=== PATIENT | female | born 1995 | race Caucasian/White ===

== ENCOUNTER 2022-04-04 03:56 | Emergency (ER) | payer OTHER ==
[~2022-04-04] VITALS: Ht 170.2 cm; Wt 49.9 kg
--- NOTE | 2022-04-04 04:10 | NUR ---
pt in room 2 b pt states she has leison on upper body and thigh area and wants std testing Dr. Nunez at bedside.
[2022-04-04] MEDS ORDERED: CLOT15CR27 TP (04:40)
[2022-04-04] MEDS ORDERED: FLUC150T PO (04:40)
--- NOTE | 2022-04-04 04:53 | NUR ---
Patient discharged to home in stable condition. Written and verbal after care instructions given. Patient verbalizes understanding of instructions. Stressed follow up or return to ER for worsening s/s. Patient is a/ox4, NAD noted. Patient is able to walk with steady gait.
[2022-04-04 04:54] VITALS: BP 127/69
[2022-04-04 05:42] LABS: *BILIRUBIN,URIN NEGATIVE (NEGATIVE); *CLARITY,URINE CLEAR (CLEAR); *COLOR,URINE YELLOW (YELLOW); *KETONES,URINE NEGATIVE (NEGATIVE); *UROBILINOGEN,URINE 0.2 E.U./dl (NORMAL); LEUKOCYTE ESTERASE ,URINE NEGATIVE (NEGATIVE); NITRITE, URINE NEGATIVE (NEGATIVE); PH,URINE 5.5 (5.0-8.0); UGLUCOSE NEGATIVE (NEGATIVE)
[2022-04-04 05:43] LABS: *BLOOD, URINE TRACE (NEGATIVE)
[2022-04-04 05:44] LABS: BACTERIA,URINE NONE SEEN /HPF (NONE SEEN); SQUAMOUS EPITHELIAL CELL,UR FEW /HPF (NONE SEEN); WBC,URINE 0-3 /HPF (0-3)
[2022-04-06 05:06] LABS: *TRIC.VAG. NAA Negative (Negative)
[2022-04-07 02:06] LABS: *GC NAA Negative (Negative)
== END 2022-04-04 04:43 | disposition home or self-care (01) ==
LOC: ER 04:00
DX: B35.4 Tinea corporis (principal); B37.3 Candidiasis of vulva and vagina
CPT/HCPCS: 87491; A4663

== ENCOUNTER 2022-08-12 21:45 | Emergency (ER) | payer OTHER ==
[~2022-08-12] VITALS: Ht 170.2 cm; Wt 49.9 kg
[~2022-08-12 21:45] MED LIST: CLOT15CR27 TP; FLUC150T PO
--- NOTE | 2022-08-12 23:00 | NUR ---
Dr. Ruth at bedside. MSE in progress.
[2022-08-12] MEDS ORDERED: ACETAMINOPHEN ES 500 MG TABLET ONE (23:09)
[2022-08-12] MEDS ORDERED: ACETAMINOPHEN ES 500 MG TABLET PO ONE (23:15)
[2022-08-12 23:23] LABS: *BILIRUBIN,URIN NEGATIVE (NEGATIVE); *BLOOD, URINE NEGATIVE (NEGATIVE); *CLARITY,URINE CLEAR (CLEAR); *COLOR,URINE YELLOW (YELLOW); *KETONES,URINE NEGATIVE (NEGATIVE); *UROBILINOGEN,URINE 0.2 E.U./dl (NORMAL); LEUKOCYTE ESTERASE ,URINE NEGATIVE (NEGATIVE); NITRITE, URINE NEGATIVE (NEGATIVE); UGLUCOSE NEGATIVE (NEGATIVE)
--- NOTE | 2022-08-13 00:51 | NUR ---
Patient discharged to home in stable condition. Written and verbal after care instructions given. Patient verbalizes understanding of instructions. Stressed follow up or return to ER for worsening s/s.
[2022-08-13 00:52] VITALS: BP 126/75
== END 2022-08-13 00:52 | disposition home or self-care (01) ==
LOC: ER 21:45
DX: B34.9 Viral infection, unspecified (principal); Z20.822 Contact with and (suspected) exposure to COVID-19
CPT/HCPCS: A4663; A9150

== ENCOUNTER 2023-09-26 19:05 | Emergency (ER) | payer OTHER ==
[~2023-09-26] VITALS: Ht 167.6 cm; Wt 51.3 kg
[2023-09-26] MEDS ORDERED: PENICILLIN G BENZATHINE 2.4 MMU/4 ML DISP.SYRIN IM ONE ×2 (19:45→20:08)
[2023-09-26 20:25] VITALS: BP 113/81; TEMP 98; O2SAT 99
== END 2023-09-26 20:20 | disposition home or self-care (01) ==
LOC: ER 19:07
DX: J02.9 Acute pharyngitis, unspecified (principal); R21 Rash and other nonspecific skin eruption; Z98.890 Other specified postprocedural states; Z79.899 Other long term (current) drug therapy
CPT/HCPCS: 99283; 96372; J0561; A4606; A4663